=== PATIENT | female | born 1930 | race Caucasian/White ===

== ENCOUNTER → 2016-10-08 | Outpatient (CLI) | payer MEDICARE, OTHER ==
[2015-07-04 07:58] VITALS: BP 132/71
[~2016-10-08] MED LIST: ALBU8.5H6 IH; ALPR0.25 PO; AMLO2.5T2 PO; ASPI-630 PO; ATEN25TA PO; CALC-31 PO; CEVI30CA5 PO; CITA10TA8 PO; DICL75TA PO; DICY20TA30 PO; DOCU-109 PO; EZET10TA18 PO; FLUT16SP2 NS; GLUC100018 PO; IBUP400T18 PO; IRON45TA3 PO; LACT1CAP21 PO; MULT1TAB97 PO; NYST15OI TP; OLOP2.5D OP; OMEG500C PO; OMEP40CA5 PO; OXYM15MI4 NS; PILO5TAB16 PO; PLAN450T PO; PRED5TAB19 PO; VENL25TA PO; WITC1MED18 TP; ZOLP5TAB PO
--- NOTE | 2016-10-08 10:46 | RAD ---
Indication screening. Ovarian failure. The right hip and lumbar spine were evaluated. No prior bone density analysis is available. In the right hip the average bone mineral density is approximately 0.84 g/cc. There is somewhat more focal demineralization in the neck. The T score of -1.3 is indicative of osteopenia. In the lumbar spine the average bone mild density is 1.1 g/cc. The T score of -0.6 is normal. IMPRESSION: Mildly osteopenic right hip. Normal bony mineralization in the lumbar spine
== END | disposition home or self-care (01) ==
LOC: DXRAD 09:50
PROVIDERS: ATTEND Family Medicine
DX: M85.88 Other specified disorders of bone density and structure, other site (principal)
CPT/HCPCS: 77080

== ENCOUNTER → 2016-10-29 | Outpatient (CLI) | payer MEDICARE, OTHER ==
[2015-07-04 07:58] VITALS: BP 132/71
[2016-10-29 09:12] LABS: ALBUMIN 3.5 g/dL (3.4-5.0); ALBUMIN/GLOBULIN RATIO 1.1 (1.0-1.7); CREATININE 1.3 mg/dL (0.6-1.0); GFR 38.8; POTASSIUM 4.1 mmol/L (3.5-5.1); TOTAL BILIRUBIN 0.3 mg/dL (0.2-1.0); TOTAL PROTEIN 6.8 g/dL (6.4-8.2)
== END | disposition home or self-care (01) ==
LOC: SPEC 08:29
PROVIDERS: ATTEND Family Medicine
DX: I10 Essential (primary) hypertension (principal); E78.4 Other hyperlipidemia
CPT/HCPCS: 36415; 80053; 80061

== ENCOUNTER → 2017-02-25 | Outpatient (CLI) | payer MEDICARE, OTHER ==
[2015-07-04 07:58] VITALS: BP 132/71
[2017-02-25 09:44] LABS: BASO # 0.1 x10^3/uL (0.0-0.2); BASO % 1 % (0-3); EOS # 0.2 x10^3/uL (0.0-0.7); EOS % 4 % (0-3); HEMATOCRIT 35.9 % (36.0-47.0); HEMOGLOBIN 12.4 g/dL (12.0-15.5); LYMPH # 1.1 x10^3/uL (1.0-4.8); LYMPH % 23 % (24-48); MEAN CORPUSCULAR HEMOGLOBIN 31 pg (25-35); MEAN CORPUSCULAR HGB CONC 35 g/dL (31-37); MEAN CORPUSCULAR VOLUME 91 fL (79-100); MONO # 0.3 x10^3/uL (0.0-1.1); MONO % 7 % (0-9); NEUT % 64 % (31-73); PLATELET COUNT 197 x10^3/uL (140-400); RED BLOOD COUNT 3.94 x10^6/uL (3.50-5.40); RED CELL DISTRIBUTION WIDTH 14.2 % (11.5-14.5); WHITE BLOOD COUNT 4.7 x10^3/uL (4.0-11.0)
[2017-02-25 09:59] LABS: ALBUMIN 3.7 g/dL (3.4-5.0); CALCIUM 9.3 mg/dL (8.5-10.1); CREATININE 1.6 mg/dL (0.6-1.0); GFR 30.6; POTASSIUM 3.8 mmol/L (3.5-5.1); TOTAL BILIRUBIN 0.3 mg/dL (0.2-1.0); TOTAL PROTEIN 7.3 g/dL (6.4-8.2)
[2017-02-25 10:57] LABS: SEDIMENTATION RATE 7 (0-25)
[2017-02-25 18:11] LABS: RHEUMATOID FACTOR 110.4 IU/mL (0.0-13.9)
== END | disposition home or self-care (01) ==
LOC: LAB 09:18
PROVIDERS: ATTEND Internal Medicine Rheumatology
DX: M35.9 Systemic involvement of connective tissue, unspecified (principal); Z79.899 Other long term (current) drug therapy
CPT/HCPCS: 36415; 80053; 84165; 85025; 85651; 86140; 86334; 86431

== ENCOUNTER → 2017-05-13 | Outpatient (CLI) | payer MEDICARE, OTHER ==
[2015-07-04 07:58] VITALS: BP 132/71
[2017-05-13 11:17] LABS: BASO # 0.1 x10^3/uL (0.0-0.2); BASO % 1 % (0-3); EOS # 0.2 x10^3/uL (0.0-0.7); EOS % 4 % (0-3); HEMATOCRIT 35.6 % (36.0-47.0); HEMOGLOBIN 12.2 g/dL (12.0-15.5); LYMPH # 1.4 x10^3/uL (1.0-4.8); LYMPH % 31 % (24-48); MEAN CORPUSCULAR HEMOGLOBIN 31 pg (25-35); MEAN CORPUSCULAR HGB CONC 34 g/dL (31-37); MEAN CORPUSCULAR VOLUME 91 fL (79-100); MONO # 0.3 x10^3/uL (0.0-1.1); MONO % 7 % (0-9); NEUT # 2.5 x10^3uL (1.8-7.7); NEUT % 57 % (31-73); PLATELET COUNT 198 x10^3/uL (140-400); RED BLOOD COUNT 3.91 x10^6/uL (3.50-5.40); RED CELL DISTRIBUTION WIDTH 14.1 % (11.5-14.5); WHITE BLOOD COUNT 4.5 x10^3/uL (4.0-11.0)
[2017-05-13 11:25] LABS: ALBUMIN 3.5 g/dL (3.4-5.0); ALBUMIN/GLOBULIN RATIO 1.1 (1.0-1.7); CALCIUM 9.3 mg/dL (8.5-10.1); CREATININE 1.4 mg/dL (0.6-1.0); GFR 35.7; POTASSIUM 3.9 mmol/L (3.5-5.1); TOTAL BILIRUBIN 0.2 mg/dL (0.2-1.0); TOTAL PROTEIN 6.6 g/dL (6.4-8.2)
== END | disposition home or self-care (01) ==
LOC: SPEC 11:02
PROVIDERS: ATTEND Family Medicine
DX: D64.9 Anemia, unspecified (principal); E78.5 Hyperlipidemia, unspecified
CPT/HCPCS: 36415; 80053; 80061; 85025

== ENCOUNTER → 2017-08-13 | Outpatient (CLI) | payer MEDICARE, OTHER ==
[2015-07-04 07:58] VITALS: BP 132/71
--- NOTE | 2017-08-13 12:45 | RAD ---
Bilateral RIBS with chest, 5 views, 08/13/2017: History: Fall, pain No acute rib fracture is identified. There is a moderate thoracolumbar scoliosis with scattered degenerative changes. The heart size is normal. There is calcific plaquing of the aorta. No pulmonary infiltrate, pneumothorax or hemothorax is evident. A retrocardiac gas collection is compatible with a small hiatal hernia. IMPRESSION: 1. No acute rib abnormality is detected. 2. Thoracolumbar scoliosis. 3. Probable small hiatal hernia
== END | disposition home or self-care (01) ==
LOC: DXRAD 11:01
PROVIDERS: ATTEND Family Medicine
DX: M41.85 Other forms of scoliosis, thoracolumbar region (principal)
CPT/HCPCS: 71111

== ENCOUNTER → 2017-09-16 | Outpatient (CLI) | payer MEDICARE, OTHER ==
[2015-07-04 07:58] VITALS: BP 132/71
--- NOTE | 2017-09-16 10:29 | CARD ---
MR#: [id number] Date of Study: 09/16/2017 Ordering Physician: JESUS ROLLINS, Referring Physician: JESUS ROLLINS Tech: Carmencita Anaya RDCS APPROVED REPORT EXAM: Two-dimensional and M-mode echocardiogram with Doppler and color Doppler. Other Information Quality : Fair INDICATION PVC's 2D DIMENSIONS Left Atrium(2D)2.0 (1.6-4.0cm)IVSd1.3 (0.7-1.1cm) Aortic Root(2D)2.6 (2.0-3.7cm)LVDd4.2 (3.9-5.9cm) LVOT Diameter1.8 (1.8-2.4cm)PWd1.1 (0.7-1.1cm) LVDs2.5 (2.5-4.0cm)FS (%) 30.0 % SV55.1 mlLVEF(%)60.0 (>50%) Aortic Valve AoV Peak Vipin.117.7cm/sAoV VTI22.4cm AO Peak GR.5.5mmHgLVOT Peak Vipin.136.6cm/s LVOT VTI 33.38cmAO Mean GR.3mmHg DEXTER (VMAX)3.76dc8OYR (VTI)3.86cm2 AI P 1/2 Hqka418nl Mitral Valve MV E Vervzlpq31.7cm/sMV DECEL TDTE665ki MV A Yapegzkc263.4cm/sMV JYL73tz E/A Ratio0.7MVA (PHT)6.51cm2 Tricuspid Valve TR P. Mfedprnn966pt/sRAP IJONPZBW3ejYt TR Peak Gr.40gtYyGYZU95fhRm Pulmonary Vein S1 Givdpdvm76.6cm/sD2 Bpdxuuim11.1cm/s LEFT VENTRICLE The left ventricle is normal size. There is mild asymmetric septal hypertrophy. The left ventricular systolic function is normal and the ejection fraction is within normal range. The Ejection Fraction i s 55-60%. There is normal LV segmental wall motion. Transmitral Doppler flow pattern is Grade I-abnor mal relaxation pattern. RIGHT VENTRICLE The right ventricle is normal size. The right ventricular systolic function is normal. ATRIA The left atrium size is normal. The right atrium size is normal. The interatrial septum is intact wit h no evidence for an atrial septal defect or patent foramen ovale as noted on 2-D or Doppler imaging. AORTIC VALVE The aortic valve is calcified but opens well. Doppler and Color Flow revealed mild aortic regurgitati on. There is no significant aortic valvular stenosis. MITRAL VALVE The mitral valve is calcified but opens well. Mitral annular calcification is mild. There is no evide nce of mitral valve prolapse. There is no mitral valve stenosis. Doppler and Color-flow revealed trac e mitral regurgitation. TRICUSPID VALVE The tricuspid valve is normal in structure and function. Doppler and Color Flow revealed trace to mil d tricuspid regurgitation. The PA pressure was estimated at 26 mmHg. There is no tricuspid valve sten osis. PULMONIC VALVE The pulmonic valve is not well visualized. Doppler and Color Flow revealed mild pulmonic valvular reg urgitation. There is no pulmonic valvular stenosis. GREAT VESSELS The aortic root is normal in size. The ascending aorta is normal in size. The IVC is normal in size a nd collapses >50% with inspiration. PERICARDIAL EFFUSION There is no evidence of significant pericardial effusion. Critical Notification Critical Value: No <Conclusion> The left ventricular systolic function is normal and the ejection fraction is within normal range. Th e Ejection Fraction is 55-60%. There is normal LV segmental wall motion. Signed by : Mike Zabala, Electronically Approved : 09/16/2017 10:28:20
--- NOTE | 2017-09-16 11:59 | RAD ---
MR#: [id number] Date of Study: 09/16/2017 Ordering Physician: JESUS ROLLINS, Referring Physician: JESUS ROLLINS, Tech: Amita Hinton RDMS, RVT, RTR APPROVED REPORT Patient Location: OUT-PATIENT Indications Claudication: On the right, frank scale images of the right lower extremity arterial vessels demonstrate mild diffus e atherosclerotic plaque without any focal high-grade obstructive disease. Spectral waveforms and col or Doppler images do not reveal any obstruction to flow. Spectral waveforms are mostly biphasic and t riphasic throughout the arterial course from the common femoral artery to the dorsalis pedis artery. No significant velocity acceleration is noted. Similarly on the right grayscale images demonstrate diffuse atherosclerotic plaque but no evidence of high-grade focal obstructive disease. Spectral waveforms are mostly biphasic in the left lower extre mity arterial vessels without any significant velocity acceleration or deceleration. Color Doppler do es not reveal any significant evidence of turbulence. Below the knee the posterior tibial artery demo nstrates decreased velocities suggestive of diffuse disease and likely greater than 50% stenosis. The peroneal and the anterior tibial vessels are widely patent with adequate velocities. Critical Notification Critical Value: No <Conclusion> 1. No significant right lower extremity arterial disease with good 3 vessel runoff. 2. Probable greater than 50% stenosis in the left posterior tibial artery otherwise good 3 vessel run off without any focal proximal disease. Signed by : Mike Zabala, Electronically Approved : 09/16/2017 11:58:22
== END | disposition home or self-care (01) ==
LOC: ECHO 07:50
PROVIDERS: ATTEND Internal Medicine Cardiovascular Disease
DX: I49.3 Ventricular premature depolarization (principal); I25.84 Coronary atherosclerosis due to calcified coronary lesion; I08.2 Rheumatic disorders of both aortic and tricuspid valves; I10 Essential (primary) hypertension; E78.4 Other hyperlipidemia
CPT/HCPCS: 93306; 93925

== ENCOUNTER → 2018-12-08 | Outpatient (CLI) | payer MEDICARE, OTHER ==
[2015-07-04 07:58] VITALS: BP 132/71
[~2018-12-08] MED LIST changes: -ATEN25TA PO; +ATEN25TA42 PO; +CEVI30CA11 PO; -CEVI30CA5 PO; +REGADENOSON 0.4 MG/5 ML DISP.SYRIN. IV ONE
--- NOTE | 2018-12-08 10:30 | CARD ---
MR#: [id number] Date of Study: 12/08/2018 Ordering Physician: JESUS ROLLINS, Referring Physician: JESUS ROLLINS Tech: Anum Spear RDCS APPROVED REPORT EXAM: Two-dimensional and M-mode echocardiogram with Doppler and color Doppler. Other Information Quality : AverageHR: 75bpm Rhythm : Other INDICATION Dyspnea 2D DIMENSIONS RVDd2.7 (2.9-3.5cm)Left Atrium(2D)3.6 (1.6-4.0cm) IVSd1.3 (0.7-1.1cm)Aortic Root(2D)2.9 (2.0-3.7cm) LVDd4.1 (3.9-5.9cm)LVOT Diameter1.8 (1.8-2.4cm) PWd1.1 (0.7-1.1cm)LVDs2.5 (2.5-4.0cm) FS (%) 37.6 %SV49.3 ml M-Mode DIMENSIONS Left Atrium(MM)3.97 (2.5-4.0cm)Aortic Root2.88 (2.2-3.7cm) Aortic Valve AoV Peak Vipin.165.7cm/sAoV VTI33.4cm AO Peak GR.11.0mmHgLVOT Peak Vipin.150.8cm/s LVOT VTI 36.20cmAO Mean GR.6mmHg DEXTER (VMAX)2.60rs2VNN (VTI)2.62cm2 AI P 1/2 Unha608pi Mitral Valve MV E Euwzexuc10.3cm/sMV DECEL IFTE532iu MV A Ncrcyqif689.2cm/sE/A Ratio0.7 Pulmonary Valve PV Peak Ouiorqya47.1cm/sPV Peak Grad.3mmHg Tricuspid Valve TR P. Jhjzcgbt587zu/sRAP WDSENJGZ2gwSh TR Peak Gr.09ziKdDPIN18fbZk LEFT VENTRICLE The left ventricle is normal size. There is mild concentric left ventricular hypertrophy. The left ve ntricular systolic function is normal and the ejection fraction is within normal range. The Ejection Fraction is 60-65%. There is normal LV segmental wall motion. Transmitral Doppler flow pattern is Gra de I-abnormal relaxation pattern. RIGHT VENTRICLE The right ventricle is normal size. There is normal right ventricular wall thickness. The right ventr icular systolic function is normal. ATRIA The left atrium is borderline dilated. The right atrium size is normal. The interatrial septum is int act with no evidence for an atrial septal defect or patent foramen ovale as noted on 2-D or Doppler i dk. AORTIC VALVE The aortic valve is normal in structure and function. The aortic valve is trileaflet. Doppler and Col or Flow revealed mild aortic regurgitation. There is no significant aortic valvular stenosis. There i s no aortic valvular vegetation. MITRAL VALVE Mitral annular calcification is mild. There is no evidence of mitral valve prolapse. There is no mitr al valve stenosis. Doppler and Color-flow revealed trace mitral regurgitation. TRICUSPID VALVE The tricuspid valve is normal in structure and function. Doppler and Color Flow revealed mild tricusp id regurgitation. The PA pressure was estimated at 26 mmHg. There is no tricuspid valve prolapse or v egetation. There is no tricuspid valve stenosis. PULMONIC VALVE The pulmonic valve is not well visualized. GREAT VESSELS The aortic root is normal in size. The ascending aorta is normal in size. The IVC is normal in size a nd collapses >50% with inspiration. PERICARDIAL EFFUSION There is no evidence of significant pericardial effusion. Critical Notification Critical Value: No <Conclusion> The left ventricle is normal size. The left ventricular systolic function is normal and the ejection fraction is within normal range. The Ejection Fraction is 60-65%. There is mild concentric left ventricular hypertrophy. Doppler and Color Flow revealed mild aortic regurgitation. There is no significant aortic valvular stenosis. Doppler and Color-flow revealed trace mitral regurgitation. Doppler and Color Flow revealed mild tricuspid regurgitation. The PA pressure was estimated at 26 mmHg. Signed by : Raf Chapa MD Electronically Approved : 12/08/2018 10:29:54
--- NOTE | 2018-12-08 11:57 | RAD ---
MR#: [id number] Date of Study: 12/08/2018 Ordering Physician: JESUS HUMPHREY, Referring Physician: EVELYN SO Tech: RT Don Almeida) (N) APPROVED REPORT Test Type: Pharmacological Stress Nurse/Tech: RT Juan Pablo (Celia) (N) Test Indications: dyspnea on exertion Cardiac History: PVC's, PAC's Medications: see EHR Medical History: see EHR Resting ECG: sinus rhythm with PAC's Resting Heart Rate: 66 bpm Resting Blood Pressure: 124/56mmHg Pretest Chest Pain: None Nurse/Tech Notes Consent: The procedure was explained to the patient in lay terms. Informed consent was witnessed. [place] eout was entered into [address]. History and Stress Test performed by RT Don Almeida) (N) Pharm. Details Pharmacologic stress testing was performed using 0.4mg per 5ml of regadenoson given intravenously ove r 7-10 seconds. POST EXERCISE Reason for Termination: Infusion complete Max HR: 102 bpm Max Blood Pressure: 146/56mmHg INTERPRETATION Stress EKG Conclusion: Baseline EKG showed sinus rhythm with PAC's. No ischemic changes at peak stre ss. No arrhythmias. Imaging Protocol IMAGE PROTOCOL: Stress Tc-99m/rest Tc-99m 2 days Rest: Stress: Viability: Radiopharm.Tc99m Sestamibi Dose30.6mCi Duration 10min. Img Date 12/08/2018 Inj-Img Vicr56ejv. Stress Admin Site: IV - Right ForearmAdministrator: RT Don Almeida)(N) STRESS DATA End Diast. Vol.49.0mlAv. Heart Rate64.0bpm End Syst. Vol.9.0mlCO Index BSA0.0L/min Myocardial Mass97.0gEject. Korirrvl08.0% Stress Rates Pk. Fill Rate1.88EDV/secLVtime Pk. Fill 271.11msec Pk. Empty Rate4.37ESV/secLVtime Pk. Rzqup865.28msec /3 Pk. Fill0.78EDV/sec Stress Scores Regional WT0.00Summed WT10.00 Regional WM0.00Summed WM2.00 LV Perfusion Stress scintigraphic images did not show any perfusion defects. Wall Motion Normal left ventricular systolic function with ejection fraction calculated at 81%. LV Perf. Quant 17 Seg. SSS0.00 Stress Defect Extent (% LAD)0.00Rest Defect Extent (% LAD)Rev. Defect Extent (% LAD)0.00 Stress Defect Extent (% LCX) 0.00Rest Defect Extent (% LCX)Rev. Defect Extent (% LCX)0.00 Stress Defect Extent (% RCA)0.00Rest Defect Extent (% RCA)Rev. Defect Extent (% RCA)0.00 Stress Defect Extent (% CHRISTEN)0.00Rest Defect Extent (% CHRISTEN)Rev. Defect Extent (% CHRISTEN)0.00 Conclusion 1. Regadenoson cardioisotope stress test did not show any evidence of ischemia or infarct. 2. Normal left ventricular systolic function with ejection fraction calculated at 81%. 3. Low risk for cardiac events. Signed by : Jesus Humphrey, Electronically Approved : 12/08/2018 11:56:41
== END | disposition home or self-care (01) ==
LOC: NM 09:16
PROVIDERS: ATTEND Internal Medicine Cardiovascular Disease
DX: I08.3 Combined rheumatic disorders of mitral, aortic and tricuspid valves (principal); I49.1 Atrial premature depolarization; J45.909 Unspecified asthma, uncomplicated; I10 Essential (primary) hypertension
CPT/HCPCS: 78452; 93017; 93306; A9500; J2785

== ENCOUNTER → 2019-11-10 | Outpatient (CLI) | payer MEDICARE, OTHER ==
[2015-07-04 07:58] VITALS: BP 132/71
[~2019-11-10] MED LIST changes: +ACET-1874 PO; +BECL10.62 IH; +CALC300T5 PO; +DICL100G18 TP; -EZET10TA18 PO; +EZET10TA20 PO; +FENT1PAT91 TP; +GABA-585 PO; +GABA-586 PO; +GUAI600T47 PO; +HYDR200T5 PO; +MELO15TA23 PO; -OLOP2.5D OP; +OLOP2.5D12 OP; +OMEP40CA45 PO; -OMEP40CA5 PO; +POLY15DR27 EACHEYE; +POLY17PO5 PO; -REGADENOSON 0.4 MG/5 ML DISP.SYRIN. IV ONE; +TRAZ-120 PO; +VENL75TA PO
--- NOTE | 2019-11-10 14:51 | RAD ---
EXAM: 1. Lumbar spine 3 views. 2. Frontal pelvis with two-view right hip. HISTORY: Spinal stenosis, right hip. COMPARISON: None. FINDINGS: There is grade 1 anterolisthesis at L4-5 from facet osteoarthritis. There is a mild lumbar levocurvature. There is mild inferior endplate depression at L3 and L4. Degenerative disc disease is moderate to severe at T12-L1 and L5-S1. It is mild from L1 through L5. Osteopenia appears moderate. No pelvic fractures are identified. The joint spaces and alignment of both hips appear maintained. Suture anchors are noted within the right greater trochanter. The alignment of both hips appears maintained. Atherosclerotic calcifications and cholecystectomy clips are noted. A 2 cm calcification in the pelvis is likely a degenerated uterine fibroid. IMPRESSION: 1. Grade 1 anterolisthesis at L4-5. Mild levoscoliosis. 2. Mild inferior plate compression deformities from L2 through L4 are likely chronic. Correlate for focal tenderness. 3. Degenerative disc disease is moderate to severe at T12-L1 and L5-S1. Electronically signed by: Wally Gomes MD (11/10/2019 2:48 PM) [id number]
== END | disposition home or self-care (01) ==
LOC: DXRAD 13:05
PROVIDERS: ATTEND Internal Medicine
DX: M51.37 Other intervertebral disc degeneration, lumbosacral region (principal); M51.35 Other intervertebral disc degeneration, thoracolumbar region; M47.816 Spondylosis without myelopathy or radiculopathy, lumbar region; M48.07 Spinal stenosis, lumbosacral region; M85.88 Other specified disorders of bone density and structure, other site; M43.8X6 Other specified deforming dorsopathies, lumbar region
CPT/HCPCS: 72100; 73502

== ENCOUNTER 2019-11-29 15:52 | Observation (INO) | payer MEDICARE, OTHER ==
[~2019-11-29] VITALS: Ht 165.1 cm; Wt 55.0 kg
[~2019-11-29 15:52] MED LIST changes: -ACET-1874 PO; -BECL10.62 IH; -CALC300T5 PO; -DICL100G18 TP; -FENT1PAT91 TP; -GABA-585 PO; -GABA-586 PO; -GUAI600T47 PO; -HYDR200T5 PO; -MELO15TA23 PO; -POLY15DR27 EACHEYE; -POLY17PO5 PO; -TRAZ-120 PO; -VENL75TA PO
--- NOTE | 2019-11-29 16:18 | EKG ---
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
[2019-11-29] MEDS ORDERED: IV NORMAL SALINE 1,000ML 1,000 ML IV ONE (16:45)
--- NOTE | 2019-11-29 17:02 | PHYS DOC ---
Past History Past Medical History: Anxiety, Asthma, GERD, High Cholesterol, Hypertension Past Medical History Limited secondary to altered mental status Past Surgical History: Cholecystectomy, Tonsillectomy Past Surgical History Limited secondary to altered mental status Smoking: Non-smoker Alcohol Use: None Drug Use: None Social History Limited secondary to altered mental status General Adult EDM: Chief Complaint: ALTERED MENTAL STATUS HPI: HPI: 89-year-old female presents to the emergency department for altered mental status. Patient is pleasant but is having trouble recounting the past 48 hours. She complains of not being able to appropriately understand what is happening around her. She feels like certain people could have been attacking her and wanting to kill her but she is not sure if it was a real or not. She complains of no pain or loss of consciousness. Patient able is able to adequately recount her medications that she takes and she says that she has been taking them all appropriately to the best of her knowledge. She currently is a resident of the "[facility] ". She states that she did recently have a fentanyl patch for sciatica but reports sciatica has been causing her substantial pain. Reports they recently increased dosing of her fentanyl patch and she thinks this may be contributing to her symptoms. Patient also reports this is caused her to have loss of appetite and caused her to forget to drink water or fluids any type. Patient says that she feels "dehydrated ". Patient states that she feels like she cannot appropriately speak and is mixing up her words. Patient is oriented to time and place. History of present illness is limited secondary to altered mental status. Review of Systems: Review of Systems: Constitutional: Denies fever or chills Eyes: Denies redness or eye pain HENT: Denies nasal congestion or sore throat Respiratory: Denies cough or shortness of breath Cardiovascular: Denies chest pain or palpitations GI: Denies abdominal pain, nausea, or vomiting : Denies dysuria or hematuria Musculoskeletal: Reports back pain and leg pain from sciatica Integument: Denies rash or skin lesions Neurologic: Denies headache, focal weakness or sensory changes. Patient reports that she feels confused. Review of systems limited secondary to altered mental status. Current Medications: Current Meds: Current Medications Medications (Trade) Dose Ordered Sig/Mallika Start Time Stop Time Status Last Admin Dose Admin Sodium Chloride 1,000 ml @ 1,000 mls/hr 1X ONCE 11/29/19 16:45 11/29/19 17:44 Allergies: Allergies: Allergies Coded Allergies Type Severity Reaction Last Updated Verified Cephalosporins Allergy Intermediate rash 10/27/13 Yes Horse/Equine Containing Products Allergy Intermediate sob 10/27/13 Yes Tetanus Vaccines and Toxoid Allergy Intermediate Shortness of Air 10/27/13 Yes codeine Allergy Intermediate Rash 10/27/13 Yes levofloxacin Allergy Intermediate rash 10/27/13 Yes morphine Allergy Intermediate rash 10/27/13 Yes sulfite Allergy Unknown 10/27/13 Yes Physical Exam: PE: Constitutional: Well developed, well nourished, no acute distress, non-toxic appearance Eyes: PERRL, EOMI, conjunctiva normal, no discharge Neck: Normal range of motion, no tenderness, supple Lungs & Thorax: no respiratory distress and appropriate chest rise and fall Abdomen: Soft, no tenderness Skin: Warm, dry, no erythema, no rash Back: No tenderness, no CVA tenderness Extremities: No tenderness, ROM intact, no edema Neurologic: Alert and oriented X 2, GCS 14, normal motor function, normal sensory function, no focal deficits noted Psychologic: Affect normal, judgment abnormal Current Patient Data: Vital Signs: Vital Signs Date Time Temp Pulse Resp B/P (MAP) Pulse Ox O2 Delivery O2 Flow Rate FiO2 11/29/19 16:07 98.4 85 16 161/83 (109) 96 Room Air EKG: EKG: @ 1608 NSR incomplete right bundle branch block, potential left anterior fascicular block. QRS 104 ; QT / QTC = 388/451; [place] 134 Radiology/Procedures: Radiology/Procedures: PROCEDURE: CT HEAD WO CONTRAST EXAM: CT Head without IV contrast CLINICAL HISTORY: Altered mental status COMPARISON: None. TECHNIQUE: Routine CT of the head without contrast. Soft tissues and bone windows were reviewed. PQRS compliance statement - One or more of the following individualized dose reduction techniques were utilized for this study: 1. Automated exposure control 2. Adjustment of the mA and/or kV according to patient size 3. Use of iterative reconstruction technique FINDINGS: There is no evidence of hemorrhage, mass or extra-axial fluid collection. Rivera-white differentiation is maintained with no evidence of edema. Subcortical, periventricular as well as deep white matter hypoattenuation likely changes of chronic small vessel disease. There is no mass effect or shift of the intracranial structures. The ventricles, basilar cisterns and cortical sulci are normal in size and configuration for the patients stated age. The cerebellum and brainstem are unremarkable. The calvarium demonstrates no evidence of fracture or focal lesion. There is normal aeration of the visualized paranasal sinuses and mastoid air cells. The visualized portions of the orbits are normal. Atherosclerotic calcifications of the intracranial internal carotid and vertebral arteries is seen. IMPRESSION: 1. No evidence for acute intracranial process. 2. Atherosclerotic calcifications of the intracranial internal carotid and vertebral arteries is seen. 3. White matter changes likely chronic small vessel disease. Electronically signed by: Renan Rodriguez MD (11/29/2019 5:22 PM) BILLIE PROCEDURE: PORTABLE CHEST 1V EXAM: PA and Lateral Views of the Chest DATE: 11/29/2019 4:32 PM INDICATION: altered mental status COMPARISON: No Prior FINDINGS: The heart is not enlarged. Mediastinal and hilar contours are normal. Retrocardiac density with air-fluid level likely small to moderate-sized hiatal hernia. No focal parenchymal airspace opacity. Mild elevation or eventration right hemidiaphragm. No pleural effusion or pneumothorax. IMPRESSION: 1. No radiographic evidence for acute cardiopulmonary process. 2. Retrocardiac density with air-fluid level likely small to moderate-sized hiatal hernia. Electronically signed by: Renan Rodriguez MD (11/29/2019 5:28 PM) BILLIE Course & Med Decision Making: Course & Med Decision Making Pertinent Labs and Imaging studies reviewed. (See chart for details) Elderly patient presents with report of altered mental status. Patient alert to name and place but confused to time. History of recent adjustment of fentanyl patch. Fentanyl patch had been removed prior to patient's arrival via EMS. EKG stable. Labs obtained and posted to chart. Ammonia and lactic acid within normal limits. CT head without acute process. Chest x-ray stable. Urine pending. Given altered mental status and concern, patient requiring admission for further evaluation. Patient requiring admission for further evaluation and treatment. Discussed with Dr. Rodriguez (hospitalist) who is in agreement with admission. Dr. Rodriguez requesting empiric antibiotic to cover for possible UTI. Decision that given patient's allergies to give dose of Aztreonam. Discussed findings and plan with patient, who acknowledges understanding and agreement. UA received and run prior to transfer to medical floor. UA without signs of infection. Additionally, patient with interval improvement of mentation during ED stay awaiting inpatient admission. Dragon Disclaimer: Dragon Disclaimer: This electronic medical record was generated, in whole or in part, using a voice recognition dictation system. Departure Departure: Impression: Primary Impression: Altered mental status Qualified Codes: R41.82 - Altered mental status, unspecified Disposition: 09 ADMITTED INPATIENT Admitting Physician: Wenceslao Rodriguez Condition: STABLE Referrals: EZ MENDOZA MD (PCP) Justification of Admission: Justification of Admission: Justification of Admission Dx: Yes Altered Mental Status: Altered Mental Status NIHSS - ED NIH Stroke Scale: NIH Stroke Scale Response (Comments) Value Level of Consciousness: 0 Alert/Responsive 0 LOC Questions: 0 Answers both correctly 0 LOC Commands: 0 Performs both tasks 0 Best Gaze: 0 Normal 0 Visual: 0 No visual loss 0 Facial Palsy: 0 Normal, symmetrical 0 Motor - Left Arm 0 No drift 0 Motor - Right Arm 0 No drift 0 Motor - Left Leg 0 No drift 0 Motor: Right Leg 0 No drift 0 Limb Ataxia: 0 Absent 0 Sensory: 0 No loss 0 Best Language: 0 Normal 0 Dysathria: 0 Normal 0 Extinction and Inattention: 0 Normal 0 Total 0 AMBRIZ,MEMO Yang DO Nov 29, 2019 17:02
--- NOTE | 2019-11-29 17:25 | RAD ---
EXAM: CT Head without IV contrast CLINICAL HISTORY: Altered mental status COMPARISON: None. TECHNIQUE: Routine CT of the head without contrast. Soft tissues and bone windows were reviewed. PQRS compliance statement - One or more of the following individualized dose reduction techniques were utilized for this study: 1. Automated exposure control 2. Adjustment of the mA and/or kV according to patient size 3. Use of iterative reconstruction technique FINDINGS: There is no evidence of hemorrhage, mass or extra-axial fluid collection. Rivera-white differentiation is maintained with no evidence of edema. Subcortical, periventricular as well as deep white matter hypoattenuation likely changes of chronic small vessel disease. There is no mass effect or shift of the intracranial structures. The ventricles, basilar cisterns and cortical sulci are normal in size and configuration for the patients stated age. The cerebellum and brainstem are unremarkable. The calvarium demonstrates no evidence of fracture or focal lesion. There is normal aeration of the visualized paranasal sinuses and mastoid air cells. The visualized portions of the orbits are normal. Atherosclerotic calcifications of the intracranial internal carotid and vertebral arteries is seen. IMPRESSION: 1. No evidence for acute intracranial process. 2. Atherosclerotic calcifications of the intracranial internal carotid and vertebral arteries is seen. 3. White matter changes likely chronic small vessel disease. Electronically signed by: Renan Rodriguez MD (11/29/2019 5:22 PM) BILLIE
--- NOTE | 2019-11-29 17:31 | RAD ---
EXAM: PA and Lateral Views of the Chest DATE: 11/29/2019 4:32 PM INDICATION: altered mental status COMPARISON: No Prior FINDINGS: The heart is not enlarged. Mediastinal and hilar contours are normal. Retrocardiac density with air-fluid level likely small to moderate-sized hiatal hernia. No focal parenchymal airspace opacity. Mild elevation or eventration right hemidiaphragm. No pleural effusion or pneumothorax. IMPRESSION: 1. No radiographic evidence for acute cardiopulmonary process. 2. Retrocardiac density with air-fluid level likely small to moderate-sized hiatal hernia. Electronically signed by: Renan Rodriguez MD (11/29/2019 5:28 PM) BILLIE
[2019-11-29 17:50] LABS: BASO % 1 % (0-3); EOS # 0.1 x10^3/uL (0.0-0.7); EOS % 1 % (0-3); HEMATOCRIT 32.3 % (36.0-47.0); HEMOGLOBIN 10.9 g/dL (12.0-15.5); LYMPH # 0.8 x10^3/uL (1.0-4.8); LYMPH % 14 % (24-48); MEAN CORPUSCULAR HEMOGLOBIN 31 pg (25-35); MEAN CORPUSCULAR HGB CONC 34 g/dL (31-37); MEAN CORPUSCULAR VOLUME 93 fL (79-100); MONO # 0.5 x10^3/uL (0.0-1.1); MONO % 7 % (0-9); NEUT # 4.7 x10^3uL (1.8-7.7); NEUT % 77 % (31-73); PLATELET COUNT 225 x10^3/uL (140-400); RED BLOOD COUNT 3.48 x10^6/uL (3.50-5.40); RED CELL DISTRIBUTION WIDTH 14.3 % (11.5-14.5); WHITE BLOOD COUNT 6.1 x10^3/uL (4.0-11.0)
[2019-11-29 17:52] LABS: CALCIUM 9.8 mg/dL (8.5-10.1); CREATININE 1.3 mg/dL (0.6-1.0); GFR 38.6; POTASSIUM 3.9 mmol/L (3.5-5.1)
[2019-11-29 18:08] LABS: ALBUMIN 3.5 g/dL (3.4-5.0); TOTAL BILIRUBIN 0.3 mg/dL (0.2-1.0); TOTAL PROTEIN 7.1 g/dL (6.4-8.2)
[2019-11-29] MEDS ORDERED: IV NORMAL SALINE 50ML 50 ML ONE (18:31)
[2019-11-29] MEDS ORDERED: AZTREONAM 1 GM VIAL. IV ONE (18:31)
[2019-11-29] MEDS ORDERED: AZTREONAM 1 GM in IV NORMAL SALINE 50ML 50 ML IV ONE (18:45)
[2019-11-29 18:53] LABS: BARBITURATES NEG (NEG); BENZODIAZEPINES NEG (NEG); CANNABINOIDS NEG (NEG); COCAINE NEG (NEG); METHADONE NEG (NEG); OPIATES NEG (NEG); PHENCYCLIDINE NEG (NEG)
[2019-11-29 18:54] LABS: AMPHETAMINE/METHAMPHETAMINE NEG (NEG)
[2019-11-29 19:01] LABS: BACTERIA,URINE 0 /HPF (0-FEW); BILIRUBIN,URINE NEG (NEG); CLARITY,URINE CLEAR; COLOR,URINE YELLOW; GLUCOSE,URINE NEG (NEG); NITRITE,URINE NEG (NEG); RBC,URINE 0 /HPF (0-2); SQUAMOUS EPITHELIAL CELL,UR OCC /LPF; UROBILINOGEN,URINE 0.2 mg/dL (0.2 mg/dL); WBC,URINE RARE /HPF (0-4)
[2019-11-29 20:51] VITALS: BP 166/79
[2019-11-29 23:23] VITALS: BP 172/82
[2019-11-30] MEDS ORDERED: AZTREONAM 1 GM in IV NORMAL SALINE 50ML 50 ML IV SCH ×2
--- NOTE | 2019-11-30 00:58 | NUR ---
The patient, SHIRA ARAGON I, 89 y/o, F admitted by SERGEY TAYLOR MD, was given written information regarding hospital policies, unit procedures and contact persons. Valuables were checked and pts vitals are stable. pt is alert and oriented but forgetful. pt is being monitored on telemetry. pt has no complaints of pain. will continue to monitor.
[2019-11-30] MEDS ORDERED: TRAZ-120 PO (02:20)
[2019-11-30] MEDS ORDERED: VENL75TA PO (02:20)
[2019-11-30] MEDS ORDERED: ACET-1874 PO (02:20)
[2019-11-30] MEDS ORDERED: CALC300T5 PO (02:20)
[2019-11-30] MEDS ORDERED: POLY17PO5 PO (02:20)
[2019-11-30] MEDS ORDERED: MELO15TA23 PO (02:20)
[2019-11-30] MEDS ORDERED: GABA-585 PO (02:20)
[2019-11-30] MEDS ORDERED: DICL100G18 TP (02:20)
[2019-11-30] MEDS ORDERED: GABA-586 PO (02:20)
[2019-11-30] MEDS ORDERED: POLY15DR27 EACHEYE (02:20)
[2019-11-30] MEDS ORDERED: FENT1PAT91 TP (02:20)
[2019-11-30] MEDS ORDERED: GUAI600T47 PO (02:20)
[2019-11-30] MEDS ORDERED: BECL10.62 IH (02:20)
[2019-11-30] MEDS ORDERED: HYDR200T5 PO (02:20)
[2019-11-30 06:27] VITALS: BP 168/75
--- NOTE | 2019-11-30 07:45 | PDOC2 ---
CARDIAC CONSULT DATE OF CONSULT DOS: DATE: 11/30/19 TIME: 07:31 REASON FOR CONSULT Reason for Consult Elevated troponin REFERRING PHYSICIAN Referring Physician Dr. Rodriguez SOURCE Source: Chart review, Patient HPI History of Present Illness This is an 89 yo female who presented secondary to altered mental status. Patient has a history of chronic sciatica pain. Was recently prescribed fentanyl patch, which patient reports made her go "cracy". Reports she was very confused and though her friends and staff at the [facility] were trying to kill her. Also caused her to have decreased appetite and was not eating and drinking well. Reports she was dehydrated. Mentation is improved this morning, but reports she still feels a little "foggy". Reports feeling nauseated yesterday. Had dry heaves, but did not actually vomit. No chest pain, palpitations, dizziness, diaphoresis, or SOA. Trop to be mildly elevated upon arrival, which prompted this consult. PAST MEDICAL HISTORY Cardiovascular: HTN Pulmonary: Asthma, Other (AMY) GI: Diverticulosis, GERD Psych: Anxiety, Depression Musculoskeletal: Osteoarthritis PAST SURGICAL HISTORY Past Surgical History: Cholecystectomy, Hysterectomy, Other FAMILY HISTORY Family History: Hypertension SOCIAL HISTORY Smoke: No ALCOHOL: none Drugs: None Lives: Roommate ([facility] ) CURRENT MEDICATIONS Current Medications Current Medications Sodium Chloride 1,000 ml @ 1,000 mls/hr 1X ONCE IV Last administered on 11/29/19at 17:24; Start 11/29/19 at 16:45; Stop 11/29/19 at 17:44; Status DC Aztreonam 1 gm/ Sodium Chloride 50 ml @ 100 mls/hr Q6HRS IV ; Start 11/30/19 at 00:00; Stop 11/29/19 at 18:40; Status DC Sodium Chloride 50 ml @ As Directed STK-MED ONCE .ROUTE ; Start 11/29/19 at 18:31; Stop 11/29/19 at 18:31; Status DC Aztreonam (Azactam) 1 gm STK-MED ONCE IV ; Start 11/29/19 at 18:31; Stop 11/29/19 at 18:32; Status DC Aztreonam 1 gm/ Sodium Chloride 50 ml @ 100 mls/hr 1X ONCE IV Last administered on 11/29/19at 18:50; Start 11/29/19 at 18:45; Stop 11/29/19 at 19:14; Status DC Active Scripts Active Reported DURAGESIC 50mcg/hr (Fentanyl) 1 Each Patch.td72 1 Patch TP Q3DAYS MDD 0.33 Patch(s) 6 Days Venlafaxine Hcl 75 Mg Tablet 1 Tab PO DAILY Gabapentin (Gabapentin) 100 Mg Capsule 100 Mg PO DAILY Gabapentin (Gabapentin) 300 Mg Capsule 300 Mg PO HS Hydroxychloroquine Sulfate 200 Mg Tablet 1 Tab PO DAILY Voltaren (Diclofenac Sodium) 100 Gm Gel..gram. 1 Gm TP QID PRN 30 Days apply to affected area(s) Meloxicam 15 Mg Tablet 1 Tab PO DAILY 30 Days Trazodone Hcl 50 Mg Tablet 0.5 Tab PO QHS Acetaminophen Er (Acetaminophen) 650 Mg Tablet.er 2 Tab PO PRN Q6HRS PRN 21 Days Tums (Calcium Carbonate) 300 Mg Tab.chew 300 Mg PO DAILY Artificial Tears (Polyvinyl Alcohol) 15 Ml Drops 1 Drop EACHEYE BID 20 Days Mucinex (Guaifenesin) 600 Mg Tablet.er 1 Tab PO PRN BID PRN 10 Days Miralax (Polyethylene Glycol 3350) 17 Gm Powd.pack 1 Packet PO PRN PRN 2 Days dissolve in water Qvar Redihaler (Beclomethasone Dipropionate) 10.6 Gm Hfa.aeroba 1 Puff IH DAILY 30 Days Afrin (Oxymetazoline Hcl) 15 Ml Mist 15 Ml NS Evoxac (Cevimeline Hcl) 30 Mg Capsule 30 Mg PO TID Culturelle (Lactobacillus Rhamnosus Gg) 1 Each Capsule 1 Each PO Prednisone 5 Mg Tab.ds.pk 5 Mg PO DAILY Albuterol Sulfate Hfa Inhaler (Albuterol Sulfate) 8.5 Gm Hfa.aer.ad 8.5 Gm IH PRN Colace (Docusate Sodium) 100 Mg Capsule 100 Mg PO DAILY Aspirin 81 Mg Tab.chew 81 Mg PO DAILY Flonase (Fluticasone Propionate) 16 Gm Wyckoff.susp 16 Gm NS DAILY Omeprazole 40 Mg Capsule.dr 40 Mg PO DAILY Norvasc (Amlodipine Besylate) 2.5 Mg Tablet 2.5 Mg PO DAILY Atenolol (Atenolol) 25 Mg Tablet 12.5 Mg PO DAILY ALLERGIES Allergies: Coded Allergies: Cephalosporins (Verified Allergy, Intermediate, rash, 10/27/13) Horse/Equine Containing Products (Verified Allergy, Intermediate, sob, 10/27/13) Tetanus Vaccines and Toxoid (Verified Allergy, Intermediate, Shortness of Air, 10/27/13) codeine (Verified Allergy, Intermediate, Rash, 10/27/13) levofloxacin (Verified Allergy, Intermediate, rash, 10/27/13) morphine (Verified Allergy, Intermediate, rash, 10/27/13) sulfite (Verified Allergy, Unknown, 10/27/13) ROS Review of Systems 14 point ROS conducted with pertinent positives noted above in HPI PHYSICAL EXAM General: Alert, Oriented X3, Cooperative, No acute distress HEENT: Atraumatic, Mucous membr. moist/pink Lungs: Clear to auscultation Heart: Regular rate, Normal S1, Normal S2, Other (2/6 systolic murmur ) Abdomen: Soft Extremities: No edema, Normal pulses Skin: No breakdown Neuro: Normal speech, Sensation intact Psych/Mental Status: Mental status NL, Mood NL MUSCULOSKELETAL: Osteoarthritic changes both hands VITALS Vital Signs Vital Signs Date Time Temp Pulse Resp B/P (MAP) Pulse Ox O2 Delivery O2 Flow Rate FiO2 11/30/19 06:27 98.7 64 16 168/75 (106) 95 11/29/19 20:51 Room Air LABS LABS Laboratory Tests Test 11/29/19 17:20 11/29/19 18:25 11/29/19 21:30 11/30/19 00:42 White Blood Count 6.1 x10^3/uL (4.0-11.0) Red Blood Count 3.48 x10^6/uL (3.50-5.40) Hemoglobin 10.9 g/dL (12.0-15.5) Hematocrit 32.3 % (36.0-47.0) Mean Corpuscular Volume 93 fL (79-100) Mean Corpuscular Hemoglobin 31 pg (25-35) Mean Corpuscular Hemoglobin Concent 34 g/dL (31-37) Red Cell Distribution Width 14.3 % (11.5-14.5) Platelet Count 225 x10^3/uL (140-400) Neutrophils (%) (Auto) 77 % (31-73) Lymphocytes (%) (Auto) 14 % (24-48) Monocytes (%) (Auto) 7 % (0-9) Eosinophils (%) (Auto) 1 % (0-3) Basophils (%) (Auto) 1 % (0-3) Neutrophils # (Auto) 4.7 x10^3uL (1.8-7.7) Lymphocytes # (Auto) 0.8 x10^3/uL (1.0-4.8) Monocytes # (Auto) 0.5 x10^3/uL (0.0-1.1) Eosinophils # (Auto) 0.1 x10^3/uL (0.0-0.7) Basophils # (Auto) 0.0 x10^3/uL (0.0-0.2) Prothrombin Time 9.9 SEC (9.4-11.4) Prothromb Time International Ratio 1.0 (0.9-1.1) Activated Partial Thromboplast Time 22 SEC (23-33) Sodium Level 141 mmol/L (136-145) Potassium Level 3.9 mmol/L (3.5-5.1) Chloride Level 106 mmol/L (98-107) Carbon Dioxide Level 22 mmol/L (21-32) Anion Gap 13 (6-14) Blood Urea Nitrogen 21 mg/dL (7-20) Creatinine 1.3 mg/dL (0.6-1.0) Estimated GFR (Cockcroft-Gault) 38.6 BUN/Creatinine Ratio 16 (6-20) Glucose Level 124 mg/dL (70-99) Lactic Acid Level 0.9 mmol/L (0.4-2.0) Calcium Level 9.8 mg/dL (8.5-10.1) Magnesium Level 2.0 mg/dL (1.8-2.4) Total Bilirubin 0.3 mg/dL (0.2-1.0) Aspartate Amino Transf (AST/SGOT) 22 U/L (15-37) Alanine Aminotransferase (ALT/SGPT) 27 U/L (14-59) Alkaline Phosphatase 64 U/L (46-116) Ammonia < 10 mcmol/L (11-34) Creatine Kinase 42 U/L (26-192) Creatine Kinase MB (Mass) 1.2 ng/mL (0.0-3.6) Creatine Kinase MB Relative Index 2.9 % (0-4) Troponin I Quantitative 0.037 ng/mL (0-0.055) 0.039 ng/mL (0-0.055) 0.042 ng/mL (0-0.055) Total Protein 7.1 g/dL (6.4-8.2) Albumin 3.5 g/dL (3.4-5.0) Albumin/Globulin Ratio 1.0 (1.0-1.7) Ethyl Alcohol Level < 10 mg/dL (0-10) Urine Collection Type Unknown Urine Color Yellow Urine Clarity Clear Urine pH 7.0 Urine Specific [place] 1.020 Urine Protein Neg (NEG-TRACE) Urine Glucose (UA) Neg mg/dL (NEG) Urine Ketones (Stick) Neg mg/dL (NEG) Urine Blood Neg (NEG) Urine Nitrite Neg (NEG) Urine Bilirubin Neg (NEG) Urine Urobilinogen Dipstick 0.2 mg/dL (0.2 mg/dL) Urine Leukocyte Esterase Neg (NEG) Urine RBC 0 /HPF (0-2) Urine WBC Rare /HPF (0-4) Urine Squamous Epithelial Cells Occ /LPF Urine Bacteria 0 /HPF (0-FEW) Urine Opiates Screen Neg (NEG) Urine Methadone Screen Neg (NEG) Urine Barbiturates Neg (NEG) Urine Phencyclidine Screen Neg (NEG) Urine Amphetamine/Methamphetamine Neg (NEG) Urine Benzodiazepines Screen Neg (NEG) Urine Cocaine Screen Neg (NEG) Urine Cannabinoids Screen Neg (NEG) Urine Ethyl Alcohol Neg (NEG) ECHOCARDIOGRAM Echocardiogram <Conclusion> The left ventricle is normal size. The left ventricular systolic function is normal and the ejection fraction is within normal range. The Ejection Fraction is 60-65%. There is mild concentric left ventricular hypertrophy. Doppler and Color Flow revealed mild aortic regurgitation. There is no significant aortic valvular stenosis. Doppler and Color-flow revealed trace mitral regurgitation. Doppler and Color Flow revealed mild tricuspid regurgitation. The PA pressure was estimated at 26 mmHg. DATE: 12/08/18 1022 STRESS TEST Stress Test Conclusion 1. Regadenoson cardioisotope stress test did not show any evidence of ischemia or infarct. 2. Normal left ventricular systolic function with ejection fraction calculated at 81%. 3. Low risk for cardiac events. DATE: 12/08/18 1152 ASSESSMENT/PLAN Assessment/Plan 1. Altered mental status; CT head without acute findings. Most probably secondary to fentanyl patch 2. Accelerated hypertension 3. Slight troponin elevation; highest 0.042. Most probably type II, demand ischemia. MPI last year without evidence of ischemia or infarct as noted above. Echo 12/07 with preserved LV systolic function 4. JUDITH; s/p IV hydration 5. GERD Recommendations Repeat trop Lipids, TSH Resume home antiHTN therapy Echo to re-assess LV systolic function Follow up in our office with Dr. Humphrey as scheduled. CHRISTOPHER HORTON APRN Nov 30, 2019 07:44
--- NOTE | 2019-11-30 08:48 | NUR ---
NURSING NOTE SPOKE WITH GURMEET KRUGER AND NOTIFIED THAT DR TAYLOR HAS SEEN PT AND DISCHARGING HER BACK, WILL DIRECTOR DATA MANAGEMENT PT AT 11. GURMEET EARLY. Addendum: 11/30/19 at 0941 by NNEKA PARKINSON RN RN DR TAYLOR SPOKE WITH DECLAN AMIN RN AND NOTIFIED OF MEDICATIONS THAT WERE DISCONTINUED AND FOLLOW UP RECOMMENDATION. GURMEET EARLY.
[2019-11-30] MEDS ORDERED: VENLAFAXINE 75 MG TABLET. PO SCH (09:00)
[2019-11-30] MEDS ORDERED: HYDROXYCHLOROQUINE 200 MG TABLET PO SCH (09:00)
[2019-11-30] MEDS ORDERED: DOCUSATE SODIUM 100 MG CAPSULE PO SCH (09:00)
[2019-11-30] MEDS ORDERED: ATENOLOL 25 MG TABLET PO SCH (09:00)
[2019-11-30] MEDS ORDERED: amLODIPine BESYLATE 2.5 MG TABLET PO SCH (09:00)
[2019-11-30] MEDS ORDERED: ASPIRIN CHEWABLE 81 MG TABLET. PO SCH (09:00)
[2019-11-30] MEDS ORDERED: GABAPENTIN 100 MG CAPSULE. PO SCH (09:00)
--- NOTE | 2019-11-30 09:09 | DS ---
DATE OF DISCHARGE: 11/30/2019 ATTENDING PHYSICIAN: Dr. Taylor. FINAL DISCHARGE DIAGNOSES: 1. Altered mentation due to narcotics. 2. Polypharmacy. 3. Essential hypertension. 4. Hyperlipidemia. 5. Gastroesophageal reflux disease. 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 Recently they had increased her Duragesic patch for chronic arthritic pain. She is also on quite a bit of other medication, which we simplified. PHYSICAL EXAMINATION: Please see the dictated note. PERTINENT LABORATORY AND X-RAY STUDIES: The obligatory CT of the head showed no acute intracranial process. Chest x-ray was clear without any decompensation. Hemoglobin was 10.9 g/dL with white count of 6100. Chemistry panel showed stable creatinine of 1.3 mg/dL, BUN 21 mg/dL. Electrolytes are within normal range. Nonfasting blood sugar was 124 mg/dL. A troponin level done routinely was slightly elevated at 0.043. This is due to stress demand ischemia. She had no other symptoms. EKG was nondiagnostic. Chest x-ray was clear. COURSE IN THE HOSPITAL: The patient was admitted to the medical floor. I held her most of her meds. We monitored her status. Her urine cultures were pending, but the urinalysis clear. They did give her an empiric dose of aztreonam in the ED per my request. Because of the slight elevation of her troponin cardiology consultation was obtained. Their recommendation is on the chart. She had no other symptoms. They recommended an echocardiogram, which can be done as an outpatient. On the second hospital day, the patient was quite alert, back to her baseline. We had a normal conversation. She understands what transpired. Her blood pressure and vital signs are quite stable. She was afebrile and her oxygen saturations are quite adequate on room air at 95%. Therefore, she is discharged home with some simplification of her meds. She should continue her Tylenol, albuterol, amlodipine, aspirin, atenolol, QVAR, calcium, __, diclofenac, docusate, guaifenesin, lactobacillus, omeprazole, Afrin p.r.n., MiraLax, artificial tears, prednisone, trazodone and Effexor dose is unchanged. For now, I took the liberty of stopping her Duragesic patch, fluticasone, Neurontin and Mobic doses. She remains a DNR per advanced directive. She was discharged then from our hospital in stable condition with explicit instructions and followup care. SERGEY TAYLOR MD DR: SASKIA/ophelia JOB#: [id number] / [id number]
[2019-11-30 09:10] VITALS: BP 168/75
--- NOTE | 2019-11-30 09:15 | HP ---
ADMIT DATE: 11/29/2019 CHIEF COMPLAINT: Altered mentation. 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 She came in with a 48-hour history of altered mentation. She is on multiple medications. Recently, her Duragesic patch had been increased. She had extensive workup. She was a little bit paranoid, but confused. In the ED, her laboratory studies were fairly unremarkable. White count was normal. Electrolytes were unremarkable. Creatinine is 1.3 percent, nonfasting blood sugar 124. Liver panel was adequate. The troponin level slightly elevated at 0.043. She had no other symptom. Ammonia level is normal. The obligatory CT of the head showed no evidence of intracranial process. Calcific arteriosclerosis identified in the internal carotid artery and vertebral artery. White matter changes and chronic small vessel disease identified. Chest x-ray was entirely clear. She was admitted for observation and holding her medication. PAST MEDICAL HISTORY: Significant for hypertension, hyperlipidemia, gastroesophageal reflux disease, asthma and anxiety. PAST SURGICAL HISTORY: Cholecystectomy and tonsillectomy. 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 She is retired. FAMILY HISTORY: Noncontributory. MEDICATIONS: Reviewed. She was on quite a bit. They included Duragesic patch every 72 hours. This was increased to 50 mcg. Tylenol, albuterol, amlodipine, aspirin, atenolol, beclomethasone, calcium, diclofenac, docusate, fentanyl patch as noted, fluticasone, Neurontin, guaifenesin, hydroxyzine, lactobacillus, Mobic, omeprazole, Afrin nasal spray, artificial tears, prednisone, trazodone and Effexor. ALLERGIES: She has multiple allergies including CEPHALOSPORINS, HORSE/EQUINE CONTAINING PRODUCTS, TETANUS TOXOID, CODEINE, LEVAQUIN and MORPHINE, exact reaction is unclear. REVIEW OF SYSTEMS: Significant for the confusion. By the time I saw her, she was much more alert. Her appetite has been fair. She has been sleeping adequately. All other systems reviewed and turned to be negative. PHYSICAL EXAMINATION: GENERAL: I saw her, this is a pleasant, thin, elderly female, but was fairly alert. Her speech was fluent and we had adequate conversation. VITAL SIGNS: Initial blood pressure was 168/75 mmHg, temperature 98.7 degrees Fahrenheit, pulse 64 and regular, oxygen saturation 95% on room air. HEENT: Head is without trauma. Pupils are reactive. Sclerae nonicteric. Oropharynx clear. NECK: Supple, no bruits. LUNGS: Clear. CARDIOVASCULAR: Showed regular heart tones. No gallops. Peripheral pulses palpable. ABDOMEN: Soft, scaphoid, nontender, no organomegaly. Bowel sounds are hypoactive. EXTREMITIES: Showed no cyanosis or edema. NEUROLOGIC: Speech is fluent. 3D Designer were intact. She was alert with no focal deficits. PERTINENT LABORATORY STUDIES: As noted. ASSESSMENT: 1. 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 2. Degenerative arthritis. 3. Polypharmacy. 4. Hypertension. 5. Hyperlipidemia. PLAN: 1. Observation status. 2. Meds continue. 3. Await urine cultures. I did give her 1 dose of aztreonam. 4. There is ever so slight elevation of troponin without symptoms. We will get a Cardiology evaluation. I suspect she may have either decreased clearance or a stress demand ischemia. In any event, we will be conservative. SERGEY TAYLOR MD DR: SASKIA/ophelia JOB#: [id number] / [id number]
--- NOTE | 2019-11-30 10:52 | NUR ---
NURSING NOTE DISCHARGE PT DISCHARGED BACK TO [facility] VIA PERSONAL WHEELCHAIR ACCOMPANIED BY [facility] TRANSPORT. THIS NURSE AND DR TAYLOR SPOKE WITH DECLAN AMIN RN AT [facility] FOR UPDATES. PT ENCOURAGED TO FOLLOW UP WITH PCP FOR MEDICATION REVIEW. PT HAS FOLLOW UP IN WITH CARDIOLOGY, APPT TIME PUT IN PACKET AND TO KEEP THAT APPOINTMENT. WRITTEN AND VERBAL DISCHARGE INSTRUCTIONS GIVEN TO PT WELL PRINTED PACKET TO TAKE TO [facility]. NEW MEDICATION LIST SENT IN PACKET. NO COMPLICATIONS. GURMEET EARLY.
--- NOTE | 2019-11-30 13:51 | CARD ---
MR#: [id number] Date of Study: 11/30/2019 Ordering Physician: CHRISTOPHER HORTON, Referring Physician: CHRISTOPHER HORTON, Tech: Vanna Mitchell APPROVED REPORT EXAM: Two-dimensional and M-mode echocardiogram with Doppler and color Doppler. Other Information Quality : AverageHR: 60bpm INDICATION Elevated Troponin 2D DIMENSIONS Left Atrium(2D)3.0 (1.6-4.0cm)IVSd1.2 (0.7-1.1cm) Aortic Root(2D)2.9 (2.0-3.7cm)LVDd4.2 (3.9-5.9cm) LVOT Diameter1.8 (1.8-2.4cm)PWd1.0 (0.7-1.1cm) LVDs2.7 (2.5-4.0cm)FS (%) 34.1 % SV48.8 mlLVEF(%)63.5 (>50%) Aortic Valve AoV Peak Vipin.151.5cm/sAoV VTI31.8cm AO Peak GR.9.2mmHgLVOT Peak Vipin.128.2cm/s LVOT VTI 31.61cmAO Mean GR.5mmHg DEXTER (VMAX)2.24do4BFO (VTI)2.52cm2 AI P 1/2 Pddl542ka Mitral Valve MV E Wktuhimi34.3cm/sMV E Peak Gr.4mmHg MV DECEL [id number] A Yyfbxghs067.5cm/s MV E Mean Gr.2mmHgE/A Ratio0.6 Pulmonary Valve PV Peak Fhtxxykm21.2cm/sPV Peak Grad.3mmHg Tricuspid Valve TR P. Qeqrctlo680qn/sRAP [id number] TR Peak Gr.39iiRxXQRP20zkQq Pulmonary Vein S1 Ivxyzcqf69.7cm/sD2 Ayeksyap63.0cm/s LEFT VENTRICLE The left ventricle is normal size. There is moderate concentric left ventricular hypertrophy. The lef t ventricular systolic function is normal and the ejection fraction is within normal range. The Eject ion Fraction is 55-60%. There is normal LV segmental wall motion. Transmitral Doppler flow pattern is Grade I-abnormal relaxation pattern. RIGHT VENTRICLE The right ventricle is normal size. There is normal right ventricular wall thickness. The right ventr icular systolic function is normal. ATRIA The left atrium size is normal. The right atrium size is normal. The interatrial septum is intact wit h no evidence for an atrial septal defect or patent foramen ovale as noted on 2-D or Doppler imaging. AORTIC VALVE The aortic valve is thickened but opens well. Doppler and Color Flow revealed mild aortic regurgitati on. There is no significant aortic valvular stenosis. Calculated aortic valve area is 2.5 cm2 with ma ximum pressure gradient of 10 mmHg and mean pressure gradient of 6 mmHg. MITRAL VALVE The mitral valve is normal in structure and function. There is no evidence of mitral valve prolapse. There is no mitral valve stenosis. Doppler and Color-flow revealed trace mitral regurgitation. TRICUSPID VALVE The tricuspid valve is normal in structure and function. Doppler and Color Flow revealed trace tricus pid regurgitation with an estimated PAP of 25 mmHG. There is no tricuspid valve stenosis. PULMONIC VALVE The pulmonic valve is not well visualized. Doppler and Color Flow revealed trace pulmonic valvular re gurgitation. There is no pulmonic valvular stenosis. GREAT VESSELS The aortic root is normal in size. The IVC is normal in size and collapses >50% with inspiration. PERICARDIAL EFFUSION There is no evidence of significant pericardial effusion. Critical Notification Critical Value: No <Conclusion> The left ventricular systolic function is normal and the ejection fraction is within normal range. Th e Ejection Fraction is 55-60%. There is normal LV segmental wall motion. There is moderate concentric left ventricular hypertrophy. Doppler and Color Flow revealed mild aortic regurgitation. Signed by : Mike Zabala, Electronically Approved : 11/30/2019 13:51:07
[2019-11-30 16:25] LABS: THYROID STIM HORMONE (TSH) 1.105 uIU/mL (0.358-3.740)
[2019-11-30] MEDS ORDERED: GABAPENTIN 300 MG CAPSULE. PO SCH (21:00)
== END 2019-11-30 10:54 | disposition home or self-care (01) ==
LOC: ER 15:52 → INTOOBSV 18:15 → 1 SOUTH 18:15
PROVIDERS: ADMIT Hospitalist; ATTEND Hospitalist
DX: I10 Essential (primary) hypertension (principal); K21.9 Gastro-esophageal reflux disease without esophagitis; E78.5 Hyperlipidemia, unspecified; J45.909 Unspecified asthma, uncomplicated; E86.0 Dehydration; M19.90 Unspecified osteoarthritis, unspecified site; N17.9 Acute kidney failure, unspecified; E78.00 Pure hypercholesterolemia, unspecified; Z66 Do not resuscitate; Z79.899 Other long term (current) drug therapy
CPT/HCPCS: 36415; 70450; 71045; 80053; 80061; 80307; 81001; 82140; 82553; 83605; 83735; 84443; 84484; 85025; 85610; 85730; 93005; 93306; 96361; 96365; 99285; G0378; G0480; J3490; J7030; G0379

== ENCOUNTER → 2020-03-30 | Outpatient (CLI) | payer MEDICARE, OTHER ==
[~2020-03-30] MED LIST changes: +ACET-1874 PO; +BECL10.62 IH; +CALC300T5 PO; +DICL100G18 TP; +FENT1PAT91 TP; +GABA-585 PO; +GABA-586 PO; +GUAI600T47 PO; +HYDR200T5 PO; +MELO15TA23 PO; +POLY15DR27 EACHEYE; +POLY17PO5 PO; +TRAZ-120 PO; +VENL75TA PO
--- NOTE | 2020-03-30 17:08 | RAD ---
Left wrist 3 views: Reason for examination: Follow-up fracture. No previous exams for comparison. There is a fracture at the distal radius with intra-articular extension without evidence of significa nt periosteal reaction or callus. There is also a fracture at the distal ulna with some callus format ion present on the radial aspect of the fracture but there is still lucency at the fracture line and no periosteal reaction. The appearance suggests nonunion. Joint spaces are fairly well-maintained. Th ere are severe degenerative changes at the first carpometacarpal joint. No other sites of fracture or dislocation are seen. IMPRESSION: Fractures at the distal radius and ulna with persistent lucency at the fracture lines with minimal pe riosteal reaction or callus. Appearance suggests nonunion. Severe degenerative changes at the first carpometacarpal joint. Electronically signed by: Dhara Rose MD (03/30/2020 5:06 PM) AIRAM
== END ==
LOC: DXRAD 15:38
PROVIDERS: ATTEND Physician Assistant
DX: S52.572E Other intraarticular fracture of lower end of left radius, subsequent encounter for open fracture type I or II with routine healing (principal); M18.9 Osteoarthritis of first carpometacarpal joint, unspecified; X58.XXXD Exposure to other specified factors, subsequent encounter
CPT/HCPCS: 73110

== ENCOUNTER → 2020-05-18 | Outpatient (CLI) | payer MEDICARE, OTHER ==
--- NOTE | 2020-05-18 14:31 | RAD ---
INDICATION: Osteoporosis screening. Postmenopausal screening COMPARISON: September 2016 TECHNIQUE: Bone densitometry was performed through the lumbar spine and proximal femur. FINDINGS: Lumbar Spine: BMD: 1.09 T-Score: -0.7 Scoliotic curvature the spine with degenerative changes. Previously T score was -0.6 Proximal Femur: BMD: 0.73 T-Score: -1.8 Previously T score was -1.3. IMPRESSION: 1. Lumbar spine falls within the lower limits of normal range. 2. Proximal femur falls within the osteopenic range. Electronically signed by: Leonel Caraballo MD (05/18/2020 2:28 PM) [id number]
== END ==
LOC: DXRAD 13:18
PROVIDERS: ATTEND Physician Assistant
DX: M85.859 Other specified disorders of bone density and structure, unspecified thigh (principal); M81.0 Age-related osteoporosis without current pathological fracture
CPT/HCPCS: 77080

== ENCOUNTER → 2020-07-03 | Outpatient (CLI) | payer MEDICARE, OTHER ==
--- NOTE | 2020-07-03 16:30 | RAD ---
EXAM: Bilateral knees, standing view; left knee, 2 views. HISTORY: Pain. COMPARISON: None. FINDINGS: A standing view both knees and 2 views left knee are obtained. There is left knee lateral c ompartment joint space narrowing with subchondral sclerosis, subchondral cyst formation and spurring. There is mild left genu valgus. There is a small left knee effusion. There are bilateral vascular ca lcifications. IMPRESSION: 1. Moderate lateral compartment osteoarthritis of the left knee with slight genu valgus. 2. Small left knee effusion. Electronically signed by: Zainab Cobb MD (07/03/2020 4:27 PM) [id number]
--- NOTE | 2020-07-03 17:30 | RAD ---
Left wrist 3 views. HISTORY: Left wrist pain 3 views were taken of the left wrist. There is an old fracture of the distal ulna with increased call us formation compared to the study from March. There is an old fracture of the distal radius with increased callus formation compared to the prior study. Alignment is unchanged. There is marked arthr itis at the first carpal metacarpal joint similar to the old exam. A new fracture is not definitely i dentified. IMPRESSION: 1. Deformity from old fractures of the radius and ulna. 2. Increased callus from partial interval healing compared to the old study. 3. No new fracture noted. 4. Arthritis at the left wrist. Electronically signed by: Henrry Ortega MD (07/03/2020 5:28 PM) [id number]
== END ==
LOC: DXRAD 15:36
PROVIDERS: ATTEND Physician Assistant
DX: S52.692 Other fracture of lower end of left ulna (principal); M17.12 Unilateral primary osteoarthritis, left knee; M21.932 Unspecified acquired deformity of left forearm; M19.032 Primary osteoarthritis, left wrist; M25.462 Effusion, left knee; X58.XXXD Exposure to other specified factors, subsequent encounter
CPT/HCPCS: 73110; 73560; 73565

== ENCOUNTER → 2020-08-01 | Outpatient (CLI) | payer MEDICARE, OTHER ==
--- NOTE | 2020-08-02 08:16 | RAD ---
US DPLX ARTR EXTREM LOWER BILAT Indication: Reason: BILAT ARTERIAL INSUFFICIENCY / Spl. Instructions: / History: Comparison: None. Procedure: Real-time grayscale, color flow Doppler, and Doppler spectral waveform analysis of the art erial system of the lower extremity is performed. Findings: Right lower extremity. Triphasic or biphasic waveform throughout the right lower extremity. Moderate atheromatous plaque. Elevated velocity within the anterior tibial artery measures 288 cm/s. Left lower extremity: Triphasic or biphasic waveforms throughout the left lower extremity. No flow is identified within the left distal posterior tibial artery. Borderline elevated velocity within the l eft popliteal artery measures 151 cm/s. Moderate atheromatous plaque. IMPRESSION: 1. No flow is identified within the LEFT left distal posterior tibial artery, may represent occlusio n. CT angiogram can further assess as clinically warranted. 2. Elevated velocity within the RIGHT anterior tibial artery, may indicate 50-75 percent stenosis. 3. Moderate bilateral atheromatous plaque. Electronically signed by: Beltran Toledo DO (08/02/2020 8:13 AM) [id number]
== END ==
LOC: US 12:51
PROVIDERS: ATTEND Internal Medicine
DX: I70.203 Unspecified atherosclerosis of native arteries of extremities, bilateral legs (principal)
CPT/HCPCS: 93925